=== PATIENT | male | born 1985 | race Caucasian/White ===

== ENCOUNTER 2020-09-23 10:48 | Emergency (ER) | payer BC | END 2020-09-23 11:01 | disposition home or self-care (01) | LOC: JVIRT 10:48 | DX: Z11.59 Encounter for screening for other viral diseases (principal) | CPT/HCPCS: C9803; Q3014-GT; U0003 ==

== ENCOUNTER 2020-12-16 09:50 | Emergency (ER) | payer BC | END 2020-12-16 11:40 | disposition home or self-care (01) | LOC: JVIRT 09:50 | DX: Z20.822 Contact with and (suspected) exposure to COVID-19 (principal) | CPT/HCPCS: C9803; G2251-GT; U0003 ==